=== PATIENT | male | born 1990 | race Caucasian/White ===

== ENCOUNTER 2017-09-10 01:34 | Emergency (ER) | payer SELFPAY | END 2017-09-10 04:44 | disposition left against medical advice (07) | LOC: FTE 01:34 | DX: Z53.21 Procedure and treatment not carried out due to patient leaving prior to being seen by health care provider (principal) ==

== ENCOUNTER 2018-01-06 08:25 | Day surgery (SDC) | payer OTHER ==
[2018-01-06] MEDS ORDERED: LIDOCAINE 4% SOLUTION 50 ML BTL (09:08)
[2018-01-06] MEDS ORDERED: FENTAnyl 50 MCG/ML VIAL (10:20)
[2018-01-06] MEDS ORDERED: MIDAZOLAM 1 MG/ML 2 ML INJ ×3 (10:20)
== END 2018-01-06 14:10 | disposition home or self-care (01) ==
LOC: GIL 08:25
DX: K20.8 Other esophagitis (principal)
CPT/HCPCS: 43239; 88305; 88312

== ENCOUNTER 2019-02-01 15:30 | Emergency (ER) | payer OTHER ==
[2019-02-01 15:46] LABS: ADD MAN DIFF? NO
[2019-02-01 15:48] LABS: BASOPHIL # 0.1 10^3/ul (0.0-0.1); BASOPHILS % 0.6 % (0.0-2.0); EOSINOPHILS # 0.1 10^3/ul (0.0-0.5); EOSINOPHILS % 0.6 % (0.0-7.0); HEMATOCRIT 43.5 % (42.0-52.0); HEMOGLOBIN 15.2 g/dl (14.0-18.0); LYMPHOCYTES # 2.9 10^3/ul (0.8-2.9); LYMPHOCYTES % 18.7 % (15.0-51.0); MEAN CORPUSCULAR HEMOGLOBIN 29.5 pg (29.0-33.0); MEAN CORPUSCULAR HGB CONC 34.9 g/dl (32.0-37.0); MEAN CORPUSCULAR VOLUME 84.3 fl (82.0-101.0); MEAN PLATELET VOLUME 11.1 fl (7.4-10.4); MONOCYTE # 0.9 10^3/ul (0.3-0.9); MONOCYTES % 5.6 % (0.0-11.0); NEUTROPHIL # 11.4 10^3/ul (1.6-7.5); NEUTROPHILS % 74.1 % (39.0-77.0); PLATELET COUNT 371 10^3/UL (140-415); RED BLOOD COUNT 5.16 10^6/ul (4.70-6.10); RED CELL DISTRIBUTION WIDTH 12.5 % (11.5-14.5)
[2019-02-01 15:48] LABS: WHITE BLOOD COUNT 15.4 10^3/ul (4.8-10.8)
[2019-02-01] MEDS: ONDANSETRON 4 MG INJ IV ×2 (15:55→19:32)
[2019-02-01] MEDS: BELLADONNA/PHENOBARBITAL TAB PO (15:55)
[2019-02-01] MEDS: LIDOCAINE/MYLANTA 40 ML BTL PO (15:55)
[2019-02-01] MEDS: FAMOTIDINE 20 MG INJ IV (15:55)
[2019-02-01] MEDS: SOD CHLORIDE 0.9% 1,000 ML IV (15:56)
[2019-02-01] MEDS: morphine 4 MG/ML VIAL IV (16:07)
[2019-02-01 16:10] LABS: ALANINE AMINOTRANSFERASE 30 IU/L (13-69); ALBUMIN 4.8 g/dl (3.3-4.9); ALBUMIN/GLOBULIN RATIO 1.37; ALKALINE PHOSPHATASE 107 IU/L (42-121); ANION GAP 11 (5-13); ASPARTATE AMINO TRANSFERASE 25 IU/L (15-46); BLOOD UREA NITROGEN 17 mg/dl (7-20); CALCIUM 9.9 mg/dl (8.4-10.2); CARBON DIOXIDE 24 mmol/L (21-31); CHLORIDE 109 mmol/L (97-110); CREATININE 0.91 mg/dl (0.61-1.24); Estimated GFR > 60 mL/min (>60); GLUCOSE 124 mg/dl (70-220); LIPASE 75 U/L (23-300); POTASSIUM 3.4 mmol/L (3.5-5.1); SODIUM 144 mmol/L (135-144); TOTAL PROTEIN 8.3 g/dl (6.1-8.1)
[2019-02-01 16:31] LABS: ADD UMIC YES; UR AMORPHOUS CRYSTAL FEW /HPF (NONE SEEN); UR ASCORBIC ACID NEGATIVE (NEGATIVE); UR BACTERIA FEW /HPF (NONE SEEN); UR BILIRUBIN (Dip) NEGATIVE (NEGATIVE); UR BLOOD (Dip) NEGATIVE (NEGATIVE); UR CLARITY TURBID (CLEAR); UR COLOR YELLOW (YELLOW); UR GLUCOSE (Dip) NEGATIVE (NEGATIVE); UR KETONES (Dip) 1+ mg/dL (NEGATIVE); UR LEUKOCYTE ESTERASE (Dip) NEGATIVE Leu/ul (NEGATIVE); UR MUCUS FEW /HPF (NONE SEEN); UR NITRITE (Dip) NEGATIVE (NEGATIVE); UR RBC 8 /HPF (0-5); UR SPECIFIC GRAVITY (Dip) 1.017 (1.003-1.030); UR SQUAMOUS EPITHELIAL CELL FEW /HPF (FEW); UR TOTAL PROTEIN (Dip) 1+ mg/dl (NEGATIVE); UR UROBILINOGEN (Dip) NEGATIVE (NEGATIVE); UR WBC 0 /HPF (0-5)
[2019-02-01] MEDS: IOHEXOL 300MG/ML 150 ML BTL (17:25)
[2019-02-01] MEDS: SOD CHLORIDE 0.9% 100 ML (17:25)
[2019-02-01] MEDS: FENTAnyl 50 MCG/ML VIAL IV (17:43)
[2019-02-01] MEDS: KETAMINE HCL (50 MG/ML) 1ml syringe IV (18:53)
[2019-02-01] MEDS: HYDROmorphONE 2 MG/ML SYG IV (19:32)
== END 2019-02-01 21:08 | disposition home or self-care (01) ==
LOC: E/R 15:30
DX: N23 Unspecified renal colic (principal); N20.0 Calculus of kidney; N13.30 Unspecified hydronephrosis; D72.829 Elevated white blood cell count, unspecified; R31.29 Other microscopic hematuria; E87.6 Hypokalemia
CPT/HCPCS: 36415; 71045; 74177; 80053; 81001; 83690; 85025; 93005; 96374; 96375; 96376; 99285-25